=== PATIENT | female | born 1990 | race Caucasian/White ===

== ENCOUNTER 2018-05-11 17:52 | Emergency (ER) | payer OTHER ==
[~2018-05-11] VITALS: Wt 63.5 kg
[2018-05-11] MEDS ORDERED: ONDANSETRON (ODT) 4 MG TAB ODT STA (20:38)
[2018-05-11] MEDS ORDERED: KETOROLAC 30 MG INJ IM STA (20:38)
[2018-05-11] MEDS ORDERED: ONDA8TAB14 PO (21:04)
[2018-05-11] MEDS ORDERED: AMOX500C2 PO (21:04)
[2018-05-11] MEDS ORDERED: IBUP-1542 PO (21:05)
--- NOTE | 2018-05-11 21:07 | ERD ---
ER Documentation Chief Complaint Chief Complaint SORE THROAT X 3 DAYS HPI 27-year-old female presents with sore throat and vomiting for last 3 days. She has diarrhea without blood as well. She did have a tactile fevers but no measured temperature. She has bilateral ear pain. She denies significant cough, shortness of breath or chest pain. ROS All systems reviewed and are negative except as per history of present illness. Medications Home Meds Active Scripts Ibuprofen* (Motrin*) 600 Mg Tab, 600 MG PO Q6, #15 TAB Prov:JAVI WILLARD MD 05/11/18 Amoxicillin* (Amoxicillin*) 500 Mg Cap, 500 MG PO TID for 10 Days, CAP Prov:JAVI WILLARD MD 05/11/18 Ondansetron (Ondansetron Odt) 8 Mg Tab.rapdis, 8 MG PO Q6H PRN for NAUSEA AND/OR VOMITING, #8 TAB Prov:JAVI WILLRAD MD 05/11/18 Allergies Allergies: Coded Allergies: No Known Allergy (Unverified , 05/11/18) PMhx/Soc History of Surgery: Yes (2 C SECTION) Anesthesia Reaction: No Hx Neurological Disorder: No Hx Respiratory Disorders: No Hx Cardiac Disorders: No Hx Psychiatric Problems: No Hx Alcohol Use: No Hx Substance Use: No Hx Tobacco Use: No Smoking Status: Never smoker FmHx Family History: No diabetes, No coronary disease, No other Physical Exam Vitals Vital Signs Date Temp Pulse Resp B/P (MAP) Pulse Ox O2 O2 Flow FiO2 Time Delivery Rate 05/11/18 97.7 73 18 125/79 99 17:55 (94) Physical Exam Const: No acute distress Head: Atraumatic Eyes: Normal Conjunctiva ENT: Normal External Ears, Nose and Mouth. Tonsils 3+ with redness. No exudate. Airway patent. Tender anterior cervical lymphadenitis. Neck: Full range of motion. No meningismus. Resp: Clear to auscultation bilaterally Cardio: Regular rate and rhythm, no murmurs Abd: Soft, non tender, non distended. Normal bowel sounds Skin: No petechiae or rashes Back: No midline or flank tenderness Ext: No cyanosis, or edema Neur: Awake and alert Psych: Normal Mood and Affect Results 24 hrs Laboratory Tests Test 05/11/18 20:47 POC Beta HCG, Qualitative NEGATIVE Current Medications Medications Dose Sig/Indra Start Time Status Last (Trade) Ordered Route PRN Stop Time Admin Dose Reason Admin Ketorolac 30 mg ONCE STAT 05/11/18 DC 05/11/18 Tromethamine IM 20:38 20:53 (Toradol) 05/11/18 20:39 Ondansetron 8 mg ONCE STAT 05/11/18 DC 05/11/18 HCl (Zofran ODT 20:38 20:45 Odt) 05/11/18 20:39 Procedures/MDM Patient is given Toradol 30 mg IM for significant pain. She was given Zofran. Patient signs and symptoms of acute pharyngitis although additional symptoms suggest possible viral illness as well. She has no evidence of sepsis or abscess. She will be treated empirically with amoxicillin, ibuprofen, Zofran, primary care follow-up and return precautions. The patient was stable with no new complaints during the ER course. Clinically, there is no current evidence to suggest meningitis, sepsis, acute abdomen, pneumonia, stroke, acute coronary syndrome, pulmonary embolism, aortic dissection or any other emergent condition appearing to require further evaluation or hospitalization. Patient counseled regarding my diagnostic impression and care plan. Prior to discharge all questions answered. Pt agrees with treatment plan and understands strict return precautions. Pt is instructed to follow up with primary care provider within 24- 48 hours. Precautionary instructions provided including instructions to return to the ER if not improving or for any worsening or changing symptoms or concerns. Departure Diagnosis: Primary Impression: Sore throat Condition: Stable Patient Instructions: Self-Care for Sore Throats, Pharyngitis, Strep (Presumed) Additional Instructions: May be viral illness. Will treat given findings on exam. Recheck for new or worsening symptoms with primary care doctor. JAVI WILLADR MD May 11, 2018 21:07
[2018-05-11 21:17] VITALS: BP 117/67; PULSE 71; RESP 18
== END 2018-05-11 21:19 | disposition home or self-care (01) ==
LOC: FTE 17:52
DX: J02.9 Acute pharyngitis, unspecified (principal)
CPT/HCPCS: 81025; 96372; J1885; Z7502; Z7610